=== PATIENT | male | born 1945 | race Caucasian/White ===

== ENCOUNTER 2017-05-27 16:12 | Emergency (ER) | payer OTHER ==
[~2017-05-27] VITALS: Ht 182.9 cm; Wt 121.2 kg
[~2017-05-27 16:12] MED LIST: CLOPIDOGREL75 MG PO; Coumadin Daily Dose PO; Coumadin,Jantoven PO; ENDOCET 5-3251 EACH PO; EXTRA STRENGTH500 M1 PO; LISINOPRIL-HCT1 EAC3 PO; LISINOPRIL20 MG PO; LOPRESSOR25 MG PO; NITROSTAT0.4 MG SL; PRAVASTATIN SOD80 MG PO; PROVENTIL HFA6.7 GM IH; Proventil,Ventolin H IH; ST. JOSEPH ASPI81 MG PO
[2017-05-27 17:22] LABS: HEMATOCRIT 45.6 % (38.0-50.0); MCH 29.1 PG (29.0-34.0); MCHC 32.7 G/DL (30.0-36.0); MCV 89.1 FL (86-99); MEAN PLAT.VOLUME 9.4 uM^3 (9.0-12.4); PLATELET COUNT 217 K/uL (156-360); RBC DIS.WIDTH-CV 12.8 % (11.8-14.6); RBC DIS.WIDTH-SD 41.4 % (39-53); RED BLOOD COUNT 5.12 M/uL (4.00-5.50); WHITE BLOOD COUNT 6.9 K/uL (4.1-10.2)
[2017-05-27 17:30] LABS: CHLORIDE 101 mEq/L (99-109); POTASSIUM 4.9 mEq/L (3.7-5.4); SODIUM 139 mEq/L (136-147)
[2017-05-27 17:31] LABS: GLUCOSE 106 mg/dL (70-99)
[2017-05-27 17:33] LABS: ANION GAP 11 MEQ/L (2-14)
[2017-05-27 17:35] LABS: GFR ESTIMATE (CALCULATED) > 59 mL/min/
[2017-05-27 17:36] LABS: UREA NITROGEN (BUN) 10 mg/dL (9-23)
[2017-05-27 18:07] LABS: ADD MIUA? YES; BILIRUBIN NEGATIVE; BLOOD LARGE; COLOR BLOODY ((YELLOW)); GLUCOSE (STRIP) NEGATIVE; KETONES NEGATIVE; LEUKOCYTES TRACE; NITRITE NEGATIVE; PROTEIN (STRIP) 30; SPECIFIC GRAVITY 1.016 (1.000-1.030); UROBILINOGEN 0.2 MG/DL (0.2-1.0)
[2017-05-27 18:10] LABS: RED BLOOD CELLS TNTC /HPF (0-5); UCUL ADDED? YES
[2017-05-27] MEDS ORDERED: BACTRIM,SEPT1 TABLET PO (19:05)
[2017-05-27 19:29] VITALS: BP 160/97
== END 2017-05-27 19:31 | disposition home or self-care (01) ==
LOC: EME 16:12
DX: N39.0 Urinary tract infection, site not specified (principal); R31.9 Hematuria, unspecified; J44.9 Chronic obstructive pulmonary disease, unspecified; I10 Essential (primary) hypertension; I25.2 Old myocardial infarction; Z85.118 Personal history of other malignant neoplasm of bronchus and lung; Z79.82 Long term (current) use of aspirin; Z87.891 Personal history of nicotine dependence
CPT/HCPCS: 80048; 81003; 85027; 87077; 87086; 87186; 99281; 99284; J0696